=== PATIENT | male | born 1945 | race Caucasian/White ===

== ENCOUNTER → 2019-08-17 20:19 | Outpatient (CLI) | payer MEDICARE, OTHER ==
[~2019-08-17 20:19] MED LIST: BUPROPION HCL75 MG PO; CRESTOR10 MG PO; HCTZ25 MG PO; PROZAC40 MG PO
[2019-08-18 12:30] VITALS: BMI 32.0
== END | disposition home or self-care (01) ==
LOC: D.LABREF 20:19
PROVIDERS: ATTEND Urology
DX: R31.9 Hematuria, unspecified (principal)

== ENCOUNTER 2019-08-18 08:21 | Inpatient (IN) | payer MEDICARE, OTHER ==
[~2019-08-18] VITALS: Ht 172.7 cm; Wt 95.5 kg
[2019-08-18] VITALS (9 sets, daily range): BP systolic 103–139; BP diastolic 60–88; Ht 172.7 cm; Wt 95.5 kg
[2019-08-18 08:40] LABS: HEMATOCRIT 45.3 % (42.0-54.0); HEMOGLOBIN 15.6 g/dL (13.5-17.5); MCH 31.9 pg (26.0-34.0); MCHC 34.4 g/dL (31.0-37.0); MCV 92.6 fL (80.0-100.0); MEAN PLATELET VOLUME 9.6 fL (7.4-10.4); RBC 4.89 10x6/uL (4.20-6.10); RDW 12.7 % (11.5-14.5); WBC 6.1 10x3/uL (4.8-10.8)
[2019-08-18 08:49] LABS: ANION GAP 10.2 mmol/L (8-16); CALCIUM 9.3 mg/dL (8.5-10.1); CARBON DIOXIDE 31.7 mmol/L (21.0-32.0); CREATININE - SERUM 1.2 mg/dL (0.6-1.3); POTASSIUM - SERUM 3.9 mmol/L (3.5-5.1)
--- NOTE | 2019-08-18 12:35 | NUR ---
PATIENT ADMITTED TO ROOM 2208. ADMISSION COMPLETE. VITALS STABLE. SOSA TO CONSTANT IRRIGATION DRAINING CLEAR RED/PINK FLUID. BED LOW. CALL BUSTOS AND PERSONAL ITEMS IN REACH. AT BEDSIDE. WILL CONTINUE TO MONITOR.
--- NOTE | 2019-08-18 13:43 | OP ---
PATIENT NAME: KYA LINARES MEDICAL RECORD: [id number] :46 LOCATION:[id number] ADMISSION DATE:08/18/19 SURGEON: DORA AGUILERA MD DATE OF OPERATION: 08/18/2019 SURGEON: Dora Aguilera MD ANESTHESIA: General anesthesia by Ruby Marino CRNA. DIAGNOSES: Claudia hematuria, bladder tumor 5 cm. PROCEDURES: Cystoscopy, transurethral resection of the bladder tumor (TURBT) 5 cm. SPECIMENS: Bladder tumor. FINDINGS: Obstructive benign prostatic hypertrophy with long prostatic urethra and obstructive lateral lobes. Tall bladder neck. No median lobe. There are single ureteral orifices bilaterally in the bladder. There is a fungating 5 cm tumor on the right posterolateral wall of the bladder, away from the ureteral orifice. BLOOD LOSS: Minimal. CLINICAL HISTORY: This is a 74-year-old male who had claudia hematuria since the summer. He then had further episodes after 2018 and then recently he had another episode with passage of blood clots. He has gone to various walk-in clinics and they have given him antibiotics for a presumed urinary tract infection. He has not had any imaging done. I saw him in the office yesterday and his urine showed moderate red blood cells. We sent it for cytology. He comes today for cystoscopy and possible bladder tumor resection. He is allergic to SULFA. He was given Ancef on-call to the OR. We initially started with TIVA because we were uncertain what we would find. DESCRIPTION OF PROCEDURE: The patient was given IV sedation and he was then placed into the lithotomy position and prepped and draped. A 17-Polish cystoscope was used for visualization. Findings above were noted. We then switched to the monopolar resectoscope using sterile water for irrigation. A 24-Polish resection loop was used. I started resecting the top of the tumor. As I approached the base of the tumor, it was evident that it was going to encroach upon the right lateral wall. I therefore asked anesthesia to give him muscle paralysis as I did not wish to trigger the obturator reflex. He was given muscle paralysis. This gave me about 8-10 minutes to resect the base of the tumor. The tumor was entirely resected including a lot of the deep muscle. This will allow us to assess for muscle invasion. The ureteral orifice was still intact at the end of resection. The tumors were removed with the O[employer] evacuator periodically as I resected. At the end of the procedure, no active bleeding was seen. There were no tumors left floating around in the bladder. The lens was then removed. A Sensor wire was placed into the bladder. Over the Sensor wire, we placed a 24-Polish 3-way Alexander catheter with the chuloonawick tip. Once the catheter was in the bladder, then the balloon was inflated with 10 cc of sterile water. Continuous bladder irrigation with normal saline was started. The patient will be admitted to hospital for bladder irrigation. He did have an outpatient CT scan of the abdomen and pelvis scheduled for the hematuria workup. I will have this CT scan done while he is in the hospital. OPERATIVE REPORT [id number] KYA LINARES TRANSINT:[id number] Voice Confirmation ID: [id number] DOCUMENT ID: [id number] DORA AGUILERA MD at 1343 CC: [id number] DICTATION DATE: 08/18/19 1057 [employer] FITTER: 08/18/19 1326 ADM IN [facility] [address] [place] [address]
--- NOTE | 2019-08-18 13:48 | NUR ---
RESTING IN BED. POST OP VITALS REMAIN STABLE. WILL CONTINUE TO MONITOR.
--- NOTE | 2019-08-18 19:21 | NUR ---
LYING IN BED WITH FAMILY AT BEDSIDE. ABLE TO VOICE ALL NEEDS. CONTINUOUS BLADDER IRRIGATION VIA GRAVITY TO SOSA WITH BRIGHT RED OUTPUT NOTED. DENIES PAIN AT THIS TIME. WILL NOTE ANY CHANGE.
--- NOTE | 2019-08-18 20:31 | NUR ---
COMPLAINS OF PAIN AND DISCOMFORT, NORCO GIVEN PER ORDERS.
--- NOTE | 2019-08-18 21:00 | NUR ---
AT 2026 GIVEN PAIN MEDS UPON REQUEST. NO S/S OF ANY ACUTE DISTRESS NOTED. WILL NOTE ANY CHANGE.
[2019-08-19] VITALS: BP 129/73
[2019-08-19 04:00] VITALS: BP 123/72
--- NOTE | 2019-08-19 05:08 | NUR ---
I have reviewed this patient and I concur with the Shift Assessment completed by the Licensed Practical Nurse today this shift.
--- NOTE | 2019-08-19 07:30 | NUR ---
PATIENT IN BED WITH IV INTACT. NO COMPLAINTS OR SIGNS OF DISTRESS. BLADDER IRRIGATION INFUSING WITH NO PROBLEMS. FAMILY AT BEDSIDE. CALL LIGHT WITHIN REACH.
[2019-08-19 08:48] VITALS: BP 117/72
--- NOTE | 2019-08-19 11:45 | NUR ---
PATIENT UP AMBULATING IN HALLWAY WITH FAMILY.
[2019-08-19 12:48] VITALS: BP 120/84
--- NOTE | 2019-08-19 13:45 | NUR ---
PATIENT IN BED WITH NO COMPLAINTS OR SIGNS OF DISTRESS. IV INTACT. BLADDER IRRIGATION INFUSING. LIGHT PINK URINE IN TUBE NOTED. FAMILY AT BEDSIDE. CALL LIGHT WITHIN REACH.
[2019-08-19 16:40] VITALS: BP 124/78
--- NOTE | 2019-08-19 18:14 | NUR ---
PATIENT SITTING UP IN CHAIR WITH IV INTACT. NO COMPLAINTS OR SIGNS OF DISTRESS. SOSA WITH BLADDER IRRIGATION INFUSING. RECIEVED PAIN MEDS. CALL LIGHT WITHIN REACH.
[2019-08-19 20:00] VITALS: BP 134/63
--- NOTE | 2019-08-19 23:13 | NUR ---
A/O WITH NO SIGNS OF ACUTE DISTRESS. IV TO THE RT HAND WITH NO REDNESS OR SWELLING NOTED. CONTINUOUS IRRIAGTION NOTED WITH PINK OUTPUT. AT BEDSIDE. DENIES NO NEEDS AT THIS TIME. CONTINUE PLAN OF CARE.
[2019-08-20 04:00] VITALS: BP 136/82
--- NOTE | 2019-08-20 04:50 | NUR ---
VOICES THAT HE IS STILL HAVING SEVERE BLADDER CRAMPS. STATES THAT IT HAPPENS WHEN HE MOVES OR TRIES TO HAVE A BM. PRN MEDS GIVEN. WILL CONTINUE TO MONITOR.
[2019-08-20 08:49] VITALS: BP 106/60
[2019-08-20 12:54] VITALS: BP 117/82
--- NOTE | 2019-08-20 14:08 | NUR ---
PATIENT SOSA IRRIGATION TURNED OFF AND PLUG PLACED AT THIS TIME PER DR. AGUILERA. PATIENT TO BE DC'D.
--- NOTE | 2019-08-20 14:45 | NUR ---
PATIENT RECIEVED DC INSTRUCTIONS AND PRESCRIPTION AT THIS TIME. VERBALIZED UNDERSTANDING. NO QUESTIONS AT THIS TIME. IV REMOVED WITH CATH TIP INTACT. WENT TO OFFICE TO GET LEG BAG. CALL LIGHT WITHIN REACH.
--- NOTE | 2019-08-20 15:00 | NUR ---
PATIENT ESCORTED OUT OF HOSPITAL WITH PERSONAL BELONGINGS TO PRIVATE VEHICLE VIA WC BY RN AT THIS TIME.
== END 2019-08-20 18:20 | disposition home or self-care (01) | DRG 670 ==
LOC: D.OPS 08:21 → D.MS 10:45 → D.PAN 11:00 → D.OPS 11:00 → D.MS 11:37 → D.OPS 11:37 → D.MS 08-20 18:20
PROVIDERS: Anesthesiology; ADMIT Urology; ATTEND Urology
PROC: 0TBB8ZZ Excision of Bladder, Via Natural or Artificial Opening Endoscopic (ICD-10-PCS; principal; 2019-08-18 11:00)
DX: C67.8 Malignant neoplasm of overlapping sites of bladder (principal); N40.1 Benign prostatic hyperplasia with lower urinary tract symptoms; R31.0 Gross hematuria

== ENCOUNTER 2019-08-24 05:40 | Emergency (ER) | payer MEDICARE, OTHER ==
[~2019-08-24] VITALS: Ht 172.7 cm; Wt 95.5 kg
[2019-08-24 05:50] VITALS: Ht 172.7 cm; Wt 95.5 kg
[2019-08-24 06:32] LABS: BASOPHILS 0.1 % (0-2); EOSINOPHILS 2.2 % (0-7); HEMATOCRIT 34.7 % (42.0-54.0); IMMATURE GRANULOCYTES 0.3 % (0-5); LYMPHOCYTES 16.3 % (15-50); MCH 31.7 pg (26.0-34.0); MCHC 34.6 g/dL (31.0-37.0); MCV 91.8 fL (80.0-100.0); MONOCYTES 10.7 % (2-11); NEUTROPHILS 70.4 % (40-80); PLATELET COUNT 170 10x3/uL (130-400); RBC 3.78 10x6/uL (4.20-6.10); RDW 12.7 % (11.5-14.5); WBC 7.9 10x3/uL (4.8-10.8)
[2019-08-24 06:47] LABS: APPEARANCE CLOUDY (CLEAR); COLOR RED (YELLOW); SPECIFIC GRAVITY 1.005 (1.005-1.020)
[2019-08-24 06:48] LABS: GLUCOSE NEGATIVE (NEGATIVE); KETONE NEGATIVE (NEGATIVE); NITRITE NEGATIVE (NEGATIVE); PROTEIN 2+ mg/dL (NEGATIVE)
[2019-08-24 06:49] LABS: BILIRUBIN NEGATIVE (NEGATIVE); WHITE CELLS - URINE OCC /hpf (NEGATIVE)
[2019-08-24 06:50] LABS: RED CELLS - URINE >50 /hpf (0-5)
[2019-08-24 06:52] LABS: APTT 28.8 SECONDS (22.8-39.4); PROTIME 13.1 SECONDS (11.6-15.0)
[2019-08-24 06:59] LABS: ANION GAP 10.8 mmol/L (8-16); BILIRUBIN - TOTAL 0.54 mg/dL (0.2-1.3); CALCIUM 9.3 mg/dL (8.5-10.1); CARBON DIOXIDE 29.7 mmol/L (21.0-32.0); CREATININE - SERUM 1.2 mg/dL (0.6-1.3); POTASSIUM - SERUM 3.5 mmol/L (3.5-5.1); PROTEIN - SERUM 6.7 g/dL (6.4-8.2)
[2019-08-24 07:57] VITALS: BP 146/87
== END 2019-08-24 08:04 | disposition home or self-care (01) ==
LOC: D.ER 05:40
PROVIDERS: Emergency Medicine
DX: R31.9 Hematuria, unspecified (principal); T81.89XA Other complications of procedures, not elsewhere classified, initial encounter; Z98.890 Other specified postprocedural states; R33.9 Retention of urine, unspecified; I10 Essential (primary) hypertension; K21.9 Gastro-esophageal reflux disease without esophagitis

== ENCOUNTER 2019-08-27 09:20 | Day surgery (SDC) | payer MEDICARE, OTHER ==
[~2019-08-27] VITALS: Ht 172.7 cm; Wt 94.5 kg
[2019-08-27 09:36] VITALS: Ht 172.7 cm; Wt 94.5 kg
[2019-08-27 10:03] LABS: BASOPHILS 0.1 % (0-2); EOSINOPHILS 2.1 % (0-7); HEMATOCRIT 36.3 % (42.0-54.0); HEMOGLOBIN 12.4 g/dL (13.5-17.5); IMMATURE GRANULOCYTES 0.4 % (0-5); LYMPHOCYTES 16.9 % (15-50); MCH 31.7 pg (26.0-34.0); MCHC 34.2 g/dL (31.0-37.0); MCV 92.8 fL (80.0-100.0); MONOCYTES 8.6 % (2-11); NEUTROPHILS 71.9 % (40-80); PLATELET COUNT 247 10x3/uL (130-400); RBC 3.91 10x6/uL (4.20-6.10); RDW 12.8 % (11.5-14.5); WBC 8.2 10x3/uL (4.8-10.8)
[2019-08-27 10:16] LABS: APPEARANCE CLOUDY (CLEAR); BILIRUBIN NEGATIVE (NEGATIVE); COLOR RED (YELLOW); GLUCOSE NEGATIVE (NEGATIVE); KETONE NEGATIVE (NEGATIVE); NITRITE NEGATIVE (NEGATIVE); PROTEIN 2+ mg/dL (NEGATIVE); SPECIFIC GRAVITY 1.015 (1.005-1.020); UROBILINOGEN NORMAL (NORMAL)
[2019-08-27 10:19] LABS: INR 0.98 (0.85-1.17)
[2019-08-27 10:22] LABS: BACTERIA FEW /hpf (NEGATIVE); EPITHELIAL CELLS 0-5 /hpf (0-5); RED CELLS - URINE >50 /hpf (0-5); WHITE CELLS - URINE OCC /hpf (NEGATIVE)
[2019-08-27 10:26] LABS: ANION GAP 12.1 mmol/L (8-16); CALCIUM 8.5 mg/dL (8.5-10.1); CARBON DIOXIDE 27.6 mmol/L (21.0-32.0); CREATININE - SERUM 1.1 mg/dL (0.6-1.3); POTASSIUM - SERUM 3.7 mmol/L (3.5-5.1)
[2019-08-27 10:32] LABS: BILIRUBIN - TOTAL 0.5 mg/dL (0.2-1.3); PROTEIN - SERUM 6.3 g/dL (6.4-8.2)
[2019-08-27] MEDS ORDERED: ASPIRIN EC81 M1 PO (10:53)
[2019-08-27] MEDS ORDERED: STOOL SOFTENER100 M1 PO (10:53)
[2019-08-27] MEDS ORDERED: MYRBETRIQ50 MG PO (11:01)
[2019-08-27 13:15] VITALS: BP 145/80
--- NOTE | 2019-08-27 14:46 | NUR ---
1435-RECD TO ROOM FROM PACU-PT CAME IN TO ER BUT WILL DISCHARGE HOME. ALERT. IV PATENT. SOSA CATH DRAINING BLOODY URINE. DENIES PAIN. HERE, DR AGUILERA SPOKE TO HER IN THE WAITING ROOM BEFORE PTS ARRIVAL.
--- NOTE | 2019-08-27 15:01 | NUR ---
1500-FULL LIQUIDS SERVED. DENIES NAUSEA. 200CC BLOODY URINE IN BAG.
--- NOTE | 2019-08-28 09:53 | OP ---
PATIENT NAME: KYA LINARES MEDICAL RECORD: [id number] :46 LOCATION:D.OPS ADMISSION DATE: SURGEON: АЛЕКСАНДР AGUILERA MD DATE OF OPERATION: 08/27/2019 SURGEON: Александр Aguilera MD. ANESTHESIA: TIVA by Sundar Flood CRNA DIAGNOSIS: Clot urinary retention, gross hematuria. PROCEDURE: Cystoscopy, bladder clot evacuation, and fulguration of bleeders. FINDINGS: Bleeding from prostatic urethra. Nonobstructive lateral lobes. There is a tall bladder neck. There are blood clots in the bladder, which were evacuated. There is no active bleeding from the bladder tumor resection site. ESTIMATED BLOOD LOSS: Minimal. CLINICAL HISTORY: This is a 74-year-old male, who had resection of a large bladder tumor on the right dome and lateral wall about 2 weeks ago. He has had episodes of gross hematuria with clot urinary retention. The ER has tried to declot the bladder, but they are still having trouble with the catheter clotting up. He comes now to have the bladder clots evacuated cystoscopically and to fulgurate any bleeding vessels. He was given Ancef adon to the OR. DESCRIPTION OF PROCEDURE: The patient was given IV sedation. He was placed in the lithotomy position and prepped and draped. A 21-Swazi cystoscope with 30-degree lens was used for visualization. There are some clots in the prostatic urethra. The prostatic urethra is vascular and there is some bleeding seen from the prostatic urethra. Going into the bladder, there are some clots seen floating around. The ProQuo evacuator was used to remove all the bladder clots through the cystoscope sheath. We then replaced the lens. The resection site was visualized. There is some edema from wound healing. There are still some areas where the perivesical fat can be seen where the resection went through all the way through the bladder wall. There was no active bleeding seen from the resection site. I took a Bugbee electrode and cauterized. Virtually all of the entire edge of the circumference of the tumor. Also, the prosthetic urethral veins were cauterized. At the end of the procedure. The scope was removed and a 20-Swazi 3-way Alexander catheter was inserted into the bladder. It went in without any issues. The balloon is inflated with 10 cc of sterile water. A catheter plug was placed into the inflow port. The drainage port was placed to bag drainage. I will see the patient in followup in 2 weeks' time to remove the catheter. By then, the bladder tumor resection site should have fully healed. TRANSINT:[id number] Voice Confirmation ID: [id number] DOCUMENT ID: [id number] OPERATIVE REPORT [id number] KYA LINARES ROBERT S MD at 0953 CC: [id number] DICTATION DATE: 08/27/191407 ORDER ADMINISTRATOR: 08/27/192057 [facility] 08/27/19 [id number] [place] [address]
== END 2019-08-27 16:40 | disposition home or self-care (01) ==
LOC: D.ER 09:20 → D.OPS 11:28
PROVIDERS: Family Medicine; ATTEND Urology
DX: R33.8 Other retention of urine (principal); R31.0 Gross hematuria; N99.89 Other postprocedural complications and disorders of genitourinary system; I10 Essential (primary) hypertension; K21.9 Gastro-esophageal reflux disease without esophagitis